=== PATIENT | female | born 2005 | race African-American/Black ===

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

== ENCOUNTER 2024-05-03 16:45 | Emergency (ER) | payer OTHER, SELFPAY ==
[2024-05-03] MEDS ORDERED: Dexamethasone 10 MG/ML VIAL ONE (17:33)
== END 2024-05-03 17:40 | disposition home or self-care (01) ==
LOC: MADERS 16:45
DX: J04.0 Acute laryngitis (principal)
CPT/HCPCS: 87081; 87430; 99283; J1100

== ENCOUNTER 2024-05-23 22:06 | Emergency (ER) | payer SELFPAY ==
[2024-05-23] MEDS ORDERED: Ketorolac Tromethamine 60 MG/2 ML VIAL ONE (22:49)
[2024-05-23] MEDS ORDERED: Methocarbamol 500 MG TAB ONE (22:49)
== END 2024-05-23 23:16 | disposition home or self-care (01) ==
LOC: MADERS 22:06
DX: S16.1XXA Strain of muscle, fascia and tendon at neck level, initial encounter (principal); X58.XXXA Exposure to other specified factors, initial encounter
CPT/HCPCS: 96372; 99283; J1885

== ENCOUNTER 2024-05-25 21:51 | Emergency (ER) | payer SELFPAY ==
[2024-05-25] MEDS ORDERED: Ketorolac Tromethamine 30 MG (1 mL) VIAL ONE (22:29)
[2024-05-25] MEDS ORDERED: Sodium Chloride 0.9% 1,000 ML ONE ×2 (22:29→23:56)
[2024-05-25] MEDS ORDERED: Prochlorperazine 10 MG/2 ML VIAL ONE (22:29)
[2024-05-25] MEDS ORDERED: Acetaminophen 325 MG TAB ONE (22:29)
[2024-05-25 22:33] LABS: #Basophils 0.1 thou/uL (0.0-0.2); #Lymphocytes 2.6 thou/uL (1.20-3.40); #Monocytes 0.8 thou/uL (0.11-0.59); #Neutrophils 5.3 thou/uL (1.40-6.50); %Basophils 0.7 % (0.0-1.0); %Eosinophils 0.3 % (0.0-10.0); %Lymphocytes 29.6 % (28.0-48.0); %Monocytes 8.7 % (0.0-4.0); %Neutrophils 60.8 % (31.0-61.0); Hematocrit 40.2 % (36.0-47.0); Hemoglobin 13.1 g/dL (12.0-16.0); Mean Corpuscular HGB CONC 32.6 g/dL (32.0-36.0); Mean Corpuscular Hemoglobin 28.6 pg (25.0-35.0); Mean Corpuscular Volume 87.7 fl (78.0-98.0); Mean Platelet Volume 6.7 fL (7.4-10.4); Platelet Count 414 10x3/uL (130-400); RBC Distribution Width 11.7 % (11.5-14.5); Red Blood Cell (RBC) Count 4.59 mill/uL (4.00-5.20); White Blood Cell (WBC) Count 8.7 10x3/uL (4.8-10.8)
[2024-05-25 22:43] LABS: BHCG - Serum Negative (NEGATIVE); Pregs Control Background? CLEAR/WHITE (CLR/WHITE); Pregs Control Bar Appear? YES (CONTROL BAR)
[2024-05-25 22:44] LABS: Prothrombin Time 13.4 sec (12.0-14.7)
[2024-05-25 22:53] LABS: ALT (SGPT) 10 U/L (8-55); AST (SGOT) 14 U/L (5-30); Albumin 4.1 g/dL (3.5-5.0); Alkaline Phosphatase 58 U/L (40-100); Anion Gap 16 mmol/L (10-20); BUN (Urea Nitrogen) 7 mg/dL (8.4-21.0); Bilirubin, Total 0.5 mg/dL (0.2-1.2); Calc. Creatinine Clearance 0 mL/min (70-130); Calcium 9.7 mg/dL (7.8-10.44); Carbon Dioxide 22 mmol/L (22-29); Chloride 105 mmol/L (98-107); Estimated GFR 104; Globulin 4.5 g/dL (2.4-3.5); Glucose 84 mg/dL (70-105); Potassium 4.2 mmol/L (3.5-5.1); Protein, Total 8.6 g/dL (6.0-8.3); Sodium 139 mmol/L (136-145)
== END 2024-05-26 01:16 | disposition home or self-care (01) ==
LOC: MADERS 21:51
DX: B34.9 Viral infection, unspecified (principal); E86.0 Dehydration
CPT/HCPCS: 80053; 83605; 84703; 85025; 85610; 87081; 87428; 87430; 96361; 96374; 96375; J0780; J1885; J7030